=== PATIENT | female | born 1955 | race Caucasian/White ===

== ENCOUNTER 2018-05-22 13:43 | Outpatient (CLI) | payer MEDICAID, SELFPAY ==
--- NOTE | 2018-05-22 14:01 | DI.RAD_ITS ---
SYMPTOMS/DIAGNOSIS: RIGHT KNEE PAIN, M25.561 RIGHT KNEE: No bony or joint abnormality is seen.
== END 2018-05-22 14:03 ==
PROVIDERS: PCP Family Medicine; Visit Provider Family Medicine
DX: M25.561 Pain in right knee (principal)
CPT/HCPCS: 73564

== ENCOUNTER 2018-10-10 09:33 | Outpatient (CLI) | payer MEDICAID, SELFPAY ==
--- NOTE | 2018-10-10 10:02 | DI.RAD_ITS ---
SYMPTOM/DIAGNOSIS: CONTINUED SOB DESPITE ANTIBIOTICS, PNEUMONIA, J18.9 PA AND LATERAL CHEST: The heart is not enlarged. The lungs appear grossly clear with some changes of scarring. No pleural effusion is seen. CONCLUSION: No evidence of acute disease. No change from 01/02/16.
[2018-10-10 10:07] LABS: Abs Immature Grans 0.02 k/cumm (0.0-0.09); Absolute Eosinophil Count 0.13 k/cumm (0.0-0.7); Absolute Lymphocyte Count 2.53 k/cumm (1.2-3.4); Absolute Neutrophil Count 9.58 k/cumm (1.2-6.7); Basophils % 0.5; HCT 47.3 % (36.0-46.0); HGB 16.2 g/dL (12.0-15.5); Immature Grans % 0.2; Lymphocytes % 19.5; Mean Corp. HGB Concentration 34.2 g/dL (32.0-36.0); Mean Corpuscular Hemoglobin 31.3 pg (27.0-33.0); Mean Corpuscular Volume 91.3 fL (80-95); Mean Platelet Volume 9.9 fL (8.0-11.0); Monocytes % 4.9; Neutrophils % 73.9; Platelet Count 239 x1000/uL (130-400); RBC 5.18 m/cumm (4.00-5.20); RBC Distribution Width 13.9 % (11.7-14.6); White Blood Cell Count 12.96 k/cumm (4.4-10.8)
[2018-10-10 10:23] LABS: Absolute Basophil Count 0.06 k/cumm (0.0-0.2); Absolute Monocyte Count 0.64 k/cumm (0.11-0.7)
[2018-10-10 11:22] LABS: ALT 35 U/L (12-78); AST 14 U/L (15-37); Albumin 3.8 g/dL (3.4-5.0); Alkaline Phosphatase 66 U/L (46-116); Anion Gap 9.4 mmol/L (3-11); BUN 18 mg/dL (7-18); Bilirubin, Total 0.3 mg/dL (0.2-1.0); CO2 27.6 mmol/L (21.0-32.0); CREATININE 0.96 mg/dL (0.55-1.02); Calcium 9.5 mg/dL (8.5-10.1); Chloride 104 mmol/L (98-107); Glucose 92 mg/dL (70-100); Potassium 4.9 mmol/L (3.5-5.1); Sodium 141 mmol/L (136-145); Total Protein 7.3 g/dL (6.4-8.2)
== END 2018-10-10 09:53 ==
PROVIDERS: PCP Family Medicine; Visit Provider Nurse Practitioner Family
DX: R19.00 Intra-abdominal and pelvic swelling, mass and lump, unspecified site (principal); R06.02 Shortness of breath
CPT/HCPCS: 36415; 80053; 71046; 85025

== ENCOUNTER 2018-10-14 01:22 | Outpatient (CLI) | payer MEDICAID, SELFPAY ==
--- NOTE | 2018-10-14 11:56 | DI.CT_ITS ---
SYMPTOM/DIAGNOSIS: MASS TO RT FLANK WITH SMALLER NODULE RT BACK, R19.[address]: CT scan of the abdomen and pelvis was performed following the uneventful administration of intravenous and oral contrast material. Comparison examination is 01/02/16. There are infiltrates seen in the dependent portions of the lungs. This may represent atelectasis or pneumonia. The liver is normal in size. No suspicious hepatic mass is seen. The portal, superior mesenteric and splenic veins are patent. The patient is status post cholecystectomy. No significant biliary ductal dilatation is present. The pancreas, spleen and adrenal glands are unremarkable. The kidneys show normal and symmetric enhancement. No suspicious solid renal mass or obstructive uropathy is present. The urinary bladder is intact. The patient appears to be status post hysterectomy. The bowel shows no evidence of obstruction or inflammation. There is a normal appendix present. There is a small hiatal hernia present. There is atherosclerosis of the abdominal aorta but no aneurysmal dilatation. No significant abdominal or pelvic adenopathy, ascites or pneumoperitoneum is present. There does appear to be a small fat containing left inguinal hernia. A marker was placed along the right lateral abdominal wall. There is again seen a fat density mass measuring 6.4 cm. AP by 2.4 cm. transverse by 6.9 cm. craniocaudad. It is interposed between the right external oblique and right internal oblique muscles. This was present on the prior examination. It does appear to have shown some interval increase in size. There is a second fat density mass seen along the right abdominal wall interposed between the internal oblique and transverse abdominis muscles more inferiorly and measures 7.6 cm. AP by 3.9 cm. transverse by 7.7 cm. craniocaudad. These are most consistent with lipomas. Degenerative changes are seen in the spine. IMPRESSION: 1. Mass identified in the right lateral abdominal wall most consistent with a lipoma. This has shown slight interval increase in size compared to the examination from 01/02/16. 2. 7.7 cm. lipoma seen in the more inferior right abdominal wall. 3. No evidence of an acute abdomen. Incidental findings in the abdomen and pelvis as described above. 4. Dependent infiltrates in the lung bases. These may represent atelectasis or pneumonia.
[2018-10-14] MEDS: Omnipaque 350 MG/ML 100 ML BTL IJ (13:36)
[2018-10-14] MEDS: Omnipaque 350 MG/ML 50 ML BTL PO (13:37)
[2018-10-14] MEDS: Breeza Beverage 473 ML BTL PO ×2 (13:37→13:41)
== END 2018-10-14 01:42 ==
PROVIDERS: PCP Family Medicine; Visit Provider Nurse Practitioner Family
DX: R19.03 Right lower quadrant abdominal swelling, mass and lump (principal); R91.8 Other nonspecific abnormal finding of lung field; D17.1 Benign lipomatous neoplasm of skin and subcutaneous tissue of trunk; K44.9 Diaphragmatic hernia without obstruction or gangrene; K40.90 Unilateral inguinal hernia, without obstruction or gangrene, not specified as recurrent
CPT/HCPCS: 74177; J3490; Q9967

== ENCOUNTER 2018-11-07 10:44 | Emergency (ER) | payer MEDICAID, SELFPAY ==
--- NOTE | 2018-11-07 10:48 | NUR.NOTE ---
pt has has been sick for approximately 2 weeks and starting 3 days ago PT headache 7/10 pain constant stabing pain in the back right side of the head
[2018-11-07 10:50] VITALS: BP 150/88; PULSE 96; RESP 15; TEMP 36.7; O2SAT 96
--- NOTE | 2018-11-07 11:26 | W.ED.GENAD ---
Discharge Plan Disposition Patient Disposition: HOME Discharge Details Chief Complaint: Headache Clinical Impression: Muscle tension headache, COPD with exacerbation Primary Care Provider: Arnav Uriarte ED Provider: Clint Morales Home Meds and New Rx's Prescriptions: New prednisone 20 mg tablet 40 mg PO DAILY Qty: 8 RF: 0 diazepam 5 mg tablet 5 mg PO BID-TID PRN (Reason: muscle spasm) Qty: 3 RF: 0 Continued cyclobenzaprine 10 mg tablet 10 mg PO TID PRN (Reason: muscle spasm) Qty: 50 RF: 3 selenium sulfide 180 ML shampoo 1 liya Topical DIRECTED Qty: 3 RF: 4 albuterol sulfate 2.5 MG/3 ML solution for nebulization 2.5 mg Inhalation QID PRNQty: 3 RF: 5 triamcinolone acetonide 60 ML lotion Topical HS Qty: 60 RF: 3 Chantix Continuing Month Box 1 MG tablet 1 mg PO BID Qty: 60 RF: 2 Chantix Starting Month Box 1 EACH tablets,dose pack 1 ea PO As Directed Qty: 1 RF: 0 clotrimazole 45 GM cream Topical BID Qty: 45 RF: 4 omeprazole 40 MG capsule,delayed release(DR/EC) 40 mg PO DAILY Qty: 90 RF: 4 magnesium oxide 250 MG tablet 250 mg PO HS Qty: 30 RF: 11 [id number]-[id number]-VS 10 ML drops,suspension 4 drp Otic TID Qty: 10 RF: 0 citalopram 20 MG tablet 20 mg PO DAILY Qty: 90 RF: 4 Advair Diskus 1 EACH blister with device 1 puff Inhalation BID Qty: 1 RF: 11 losartan 50 mg tablet 50 mg PO DAILY Qty: 90 RF: 3 ProAir HFA 90 mcg/actuation HFA aerosol inhaler 2 puff Inhalation Q6H PRN Qty: 3 RF: 4 Atrovent HFA 17 mcg/actuation HFA aerosol inhaler 2 puff Inhalation QID Qty: 3 RF: 4 meloxicam 7.5 mg tablet See Rx Instructions PO DAILY Qty: 90 RF: 3 trazodone 50 mg tablet 50 mg PO HS PRN (Reason: insomnia) Qty: 90 RF: 3 Discontinued levofloxacin 750 mg tablet 750 mg PO DAILY Qty: 5 RF: 0 promethazine-codeine 6.25-10 mg/5 mL syrup 5 ml PO HS PRN (Reason: cough) Qty: 118 RF: 0 Discharge Instructions Instructions: Tension Headache (ED), COPD (Chronic Obstructive Pulmonary Disease) (ED) Additional Instructions: Please take medication as prescribed and follow-up with primary care provider next week for reassessment of your COPD and your headache. Feel free to return to the emergency department for any new or worsening symptoms, change in your symptoms, or further concerns she may have. You may continue to take your normal prescribed medication along with [id number] Excedrin Migraine headache medication. Referrals: Arnav Uriarte MD [Primary Care Provider] - (For reassessment next week) Discharge Data Discharge Date/Time-TO BE ENTERED AT DEPARTURE: 11/07/18 13:45 Medical Decision Making Patient presenting to the emergency department for chief complaint of headache. Patient states right-sided headache that started 3 days ago when returning from [place] on an airplane. She also does complain of some worsening shortness of breath that has been going on for a while . Patient does have history of COPD and has been on multiple antibiotics for potential pneumonia. Patient states that last round of antibiotics did seem to help her symptoms but now they are worse again. Review of previous records shows patient was also given steroid at that time so I am more suspicious of COPD exacerbation or worsening of her baseline COPD causing the shortness of breath. Start the headache goes patient has normal neurological exam with point tenderness to the right posterior soft tissue, muscles, and scalp. I feel the patient's headache is more tension migraine headache. Patient has no focal neurological findings to suggest otherwise at this time I do not feel that any imaging of the head is needed. Plan to perform labs, chest x-ray, and EKG for evaluation of patient shortness of breath and treat for migraine along with DuoNeb pending results. Also plan to check d-dimer given patient stating increased shortness of breath, is a smoker, over the age of 50, and recently long distance travel. Review of labs show no leukocytosis, otherwise nondiagnostic CMP with slight elevation of ALT and AST but nothing diagnostic, d-dimer 1400. Plan to do CT imaging of the chest. Patient reassessed and also continue to state discomfort within her right occipital, the pain was different than previous migraines, so plan to do CT imaging of the head. Review of CT imaging and speaking with the radiologist shows no PE, atelectasis without signs of pneumonia, and no acute findings on head CT. Patient reassessed and states some improvement of symptoms but only slight. Patient was offered a occipital nerve block given muscular point tenderness to the right occipit, as I feel that this would significantly benefit patient, but patient has phobia of needles so refused this treatment at this time. Given my concern of this being muscular tension type headache patient was given 3 tablets of diazepam to take at home to see if this helps reduce or minimize her symptoms. Patient was also encouraged to use Excedrin migraine headache medication, stay well-hydrated. Given patient's shortness of breath with no pneumonia findings, stable vital signs, and history of COPD I feel that she has some COPD exacerbation and would benefit from steroid burst. Patient given prednisone 4-day burst. Patient placed upon primary care follow-up list for reassessment next week. Thorough return precautions were discussed. After discussion of diagnosis and plan of care patient has no further needs, questions, or concerns and states clear understanding to return to the emergency department for any worsening symptoms. ECG Data Attestation: I personally reviewed and interpreted this ECG (s) as follows: Interpretation: EKG reviewed with Dr. Nava Desai and shows sinus rhythm with rate of 88, normal axis, normal QT, no acute STEMI HPI General Mode of arrival: ambulatory. Date/Time Provider Initiated Documentation: 11/07/18 10:52. Limitations to Documentation: no limitations. Information obtained by: patient and RN notes reviewed. History of Present Illness 63 year old F presents to the emergency department with the chief complaint of headache, described as severe, Quality is described as sharp, and is localized to the head and right. Patient started experiencing this day(s) (3) and it has been constant. No relieving factors improve symptom(s), No exacerbating factors reported . Patient did receive the following treatments prior to arrival, none Related Data Home Medications Medication Instructions Recorded Confirmed selenium sulfide 1 liya TOPICAL DIRECTED #3 script 03/06/13 10/10/18 albuterol sulfate 2.5 mg INHALATION QID PRN #3 box 03/19/14 10/10/18 triamcinolone acetonide 0 TOPICAL HS #60 ml 04/06/14 10/10/18 Chantix Continuing Month Box 1 mg PO BID #60 tab-cap 09/26/17 09/05/18 Chantix Starting Month Box 1 ea PO As Directed #1 pack 09/26/17 10/10/18 clotrimazole 0 TOPICAL BID #45 g 10/10/17 10/10/18 magnesium oxide 250 mg PO HS #30 tab 01/28/18 10/10/18 [id number]-yoxanztrh-LV 4 drp OTIC TID #10 ml 01/28/18 10/10/18 omeprazole 40 mg PO DAILY #90 tab-cap 01/28/18 10/10/18 citalopram 20 mg PO DAILY #90 tab-cap 03/04/18 10/10/18 Advair Diskus 1 puff INHALATION BID #1 disk 04/03/18 10/10/18 losartan 50 mg tablet 50 mg PO DAILY #90 tab-cap 06/11/18 10/10/18 cyclobenzaprine 10 mg tablet 10 mg PO TID PRN #50 tab-cap 09/05/18 10/10/18 albuterol sulfate HFA 90 2 puff INHALATION Q6H PRN #3 10/21/18 mcg/actuation aerosol inhaler inhaler ipratropium bromide 17 2 puff INHALATION QID #3 inhaler 10/21/18 mcg/actuation HFA aerosol inhaler meloxicam 7.5 mg tablet See Rx Instructions PO DAILY #90 10/21/18 tab-cap trazodone 50 mg tablet 50 mg PO HS PRN #90 tab-cap 10/21/18 diazepam 5 mg PO BID-TID PRN #3 tab 11/07/18 prednisone 40 mg PO DAILY #8 tab 11/07/18 Previous Rx's Medication Instructions Recorded Chantix Continuing Month Box 1 mg PO BID #60 tab-cap 09/26/17 Chantix Starting Month Box 1 ea PO As Directed #1 pack 09/26/17 magnesium oxide 250 mg PO HS #30 tab 01/28/18 [id number]-lksrmwokl-ML 4 drp OTIC TID #10 ml 01/28/18 omeprazole 40 mg PO DAILY #90 tab-cap 01/28/18 citalopram 20 mg PO DAILY #90 tab-cap 03/04/18 Advair Diskus 1 puff INHALATION BID #1 disk 04/03/18 losartan 50 mg tablet 50 mg PO DAILY #90 tab-cap 06/11/18 cyclobenzaprine 10 mg tablet 10 mg PO TID PRN #50 tab-cap 09/05/18 albuterol sulfate HFA 90 2 puff INHALATION Q6H PRN #3 10/21/18 mcg/actuation aerosol inhaler inhaler ipratropium bromide 17 2 puff INHALATION QID #3 inhaler 10/21/18 mcg/actuation HFA aerosol inhaler meloxicam 7.5 mg tablet See Rx Instructions PO DAILY #90 10/21/18 tab-cap trazodone 50 mg tablet 50 mg PO HS PRN #90 tab-cap 10/21/18 diazepam 5 mg PO BID-TID PRN #3 tab 11/07/18 prednisone 40 mg PO DAILY #8 tab 11/07/18 Allergies Allergy/AdvReac Type Severity Reaction Status Date / Time gabapentin Allergy Severe SKIN RASH Verified 11/07/18 12:27 mold Allergy Intermediate rash, sob Verified 11/07/18 12:27 General Stated Complaint: Headache BUTCH: 3 Review of Systems Constitutional Denies body ache(s), Denies chills, Denies fever(s) and Reports headache(s) Eyes Denies change in vision ENT Reports dizziness, Reports headache(s), Denies sinus pressure and Denies sore throat Cardiovascular Denies chest pain, Denies syncope and Reports dyspnea Respiratory Reports cough, Denies hemoptysis, Reports dyspnea and Reports wheezing Gastrointestinal Denies nausea and Denies vomiting Neurologic Reports as per HPI, Reports dizziness, Denies syncope, Reports headache(s) and Denies sensory deficit Allergic/Immunologic Reports wheezing PFSH Surgical History Abdominal hysterectomy (~2005) Bilateral salpingectomy with oophorectomy Cervical Procedure Cholecystectomy Social History Smoking/Tobacco Use Status: Current every day Drug use: Never Do you feel safe in your relationship?: Yes Exam Const General: cooperative, healthy appearing, no acute distress and well groomed Orientation: alert, awake and oriented x3 HENMT Head: normal to inspection Ears: hearing grossly normal bilaterally and TM's normal bilaterally Mouth: oral mucosae normal and moist mucous membranes Throat: posterior oropharynx normal Eyes Visual Glass: normal visual glass by confrontation Alignment and Position: alignment normal Periorbital: periorbital findings normal Eyelids: eyelids normal Sclera: sclerae normal Cornea: corneas normal Pupils: PERRL EOM: EOM intact bilaterally Neck Neck: normal visual inspection, full ROM, no lymphadenopathy and no meningeal signs Resp Effort & Inspection: normal respiratory effort and able to speak in complete sentences Auscultation: wheezes expiratory wheezes, inspiratory wheezes and scattered wheezes Cardio Rate: regular rate Rhythm: regular rhythm Heart Sounds: S1 normal and S2 normal Neuro General: alert, awake, oriented x3, gait normal, tone normal, moves all extremities, CN's II-XI intact bilaterally and not confused Cognition: normal cognition Speech: speech normal Motor: muscle tone normal throughout, strength 5/5 throughout, no pronator drift, no movement abnormalities noted and no fasciculations Sensory Exam: no sensory deficits noted Coordination: [id number]-[id number] test normal, Does not sway with eyes open, rapid alternating movement UE normal and rapid alternating movement LE normal Course Vital Signs Temperature 36.7 C 11/07/18 10:50 Pulse 96 H 11/07/18 10:50 Respiratory Rate 15 11/07/18 10:50 Blood Pressure 150/88 H 11/07/18 10:50 Pulse Oximetry 96 11/07/18 10:50 Temperature 36.7 C 11/07/18 10:50 Temperature Source Skin 11/07/18 10:50 Pulse 96 H 11/07/18 10:50 Respiratory Rate 15 11/07/18 10:50 Blood Pressure 150/88 H 11/07/18 10:50 Blood Pressure Position Sitting 11/07/18 10:50 Pulse Oximetry 96 11/07/18 10:50 Oxygen Delivery Method Room Air 11/07/18 10:50 Oxygen Flow Rate 0 11/07/18 10:50 Pain Level 7 11/07/18 10:50
--- NOTE | 2018-11-07 11:34 | ED.GENADUL_ITS ---
Discharge Plan Disposition Patient Disposition: HOME Discharge Details Chief Complaint: Headache Clinical Impression: Muscle tension headache, COPD with exacerbation Primary Care Provider: Arnav Uriarte ED Provider: Clint Morales Home Meds and New Rx's Prescriptions: New prednisone 20 mg tablet 40 mg PO DAILY Qty: 8 RF: 0 diazepam 5 mg tablet 5 mg PO BID-TID PRN (Reason: muscle spasm) Qty: 3 RF: 0 Continued cyclobenzaprine 10 mg tablet 10 mg PO TID PRN (Reason: muscle spasm) Qty: 50 RF: 3 selenium sulfide 180 ML shampoo 1 liya Topical DIRECTED Qty: 3 RF: 4 albuterol sulfate 2.5 MG/3 ML solution for nebulization 2.5 mg Inhalation QID PRNQty: 3 RF: 5 triamcinolone acetonide 60 ML lotion Topical HS Qty: 60 RF: 3 Chantix Continuing Month Box 1 MG tablet 1 mg PO BID Qty: 60 RF: 2 Chantix Starting Month Box 1 EACH tablets,dose pack 1 ea PO As Directed Qty: 1 RF: 0 clotrimazole 45 GM cream Topical BID Qty: 45 RF: 4 omeprazole 40 MG capsule,delayed release(DR/EC) 40 mg PO DAILY Qty: 90 RF: 4 magnesium oxide 250 MG tablet 250 mg PO HS Qty: 30 RF: 11 gibfrknf-yizuhcrsb-TG 10 ML drops,suspension 4 drp Otic TID Qty: 10 RF: 0 citalopram 20 MG tablet 20 mg PO DAILY Qty: 90 RF: 4 Advair Diskus 1 EACH blister with device 1 puff Inhalation BID Qty: 1 RF: 11 losartan 50 mg tablet 50 mg PO DAILY Qty: 90 RF: 3 ProAir HFA 90 mcg/actuation HFA aerosol inhaler 2 puff Inhalation Q6H PRN Qty: 3 RF: 4 Atrovent HFA 17 mcg/actuation HFA aerosol inhaler 2 puff Inhalation QID Qty: 3 RF: 4 meloxicam 7.5 mg tablet See Rx Instructions PO DAILY Qty: 90 RF: 3 trazodone 50 mg tablet 50 mg PO HS PRN (Reason: insomnia) Qty: 90 RF: 3 Discontinued levofloxacin 750 mg tablet 750 mg PO DAILY Qty: 5 RF: 0 promethazine-codeine 6.25-10 mg/5 mL syrup 5 ml PO HS PRN (Reason: cough) Qty: 118 RF: 0 Discharge Instructions Instructions: Tension Headache (ED), COPD (Chronic Obstructive Pulmonary Disease) (ED) Additional Instructions: Please take medication as prescribed and follow-up with primary care provider next week for reassessment of your COPD and your headache. Feel free to return to the emergency department for any new or worsening symptoms, change in your symptoms, or further concerns she may have. You may continue to take your normal prescribed medication along with [id number] Excedrin Migraine headache medication. Referrals: Arnav Uriarte MD [Primary Care Provider] - (For reassessment next week) Discharge Data Discharge Date/Time-TO BE ENTERED AT DEPARTURE: 11/07/18 13:45 Medical Decision Making Patient presenting to the emergency department for chief complaint of headache. Patient states right-sided headache that started 3 days ago when returning from [place] on an airplane. She also does complain of some worsening shortness of breath that has been going on for a while . Patient does have history of COPD and has been on multiple antibiotics for potential pneumonia. Patient states that last round of antibiotics did seem to help her symptoms but now they are worse again. Review of previous records shows patient was also given steroid at that time so I am more suspicious of COPD exacerbation or worsening of her baseline COPD causing the shortness of breath. Start the headache goes patient has normal neurological exam with point tenderness to the right posterior soft tissue, muscles, and scalp. I feel the patient's headache is more tension migraine headache. Patient has no focal neurological findings to suggest otherwise at this time I do not feel that any imaging of the head is needed. Plan to perform labs, chest x-ray, and EKG for evaluation of patient shortness of breath and treat for migraine along with DuoNeb pending results. Also plan to check d-dimer given patient stating increased shortness of breath, is a smoker, over the age of 50, and recently long distance travel. Review of labs show no leukocytosis, otherwise nondiagnostic CMP with slight elevation of ALT and AST but nothing diagnostic, d-dimer 1400. Plan to do CT imaging of the chest. Patient reassessed and also continue to state discomfort within her right occipital, the pain was different than previous migraines, so plan to do CT imaging of the head. Review of CT imaging and speaking with the radiologist shows no PE, atelectasis without signs of pneumonia, and no acute findings on head CT. Patient reassessed and states some improvement of symptoms but only slight. Patient was offered a occipital nerve block given muscular point tenderness to the right occipit, as I feel that this would significantly benefit patient, but patient has phobia of needles so refused this treatment at this time. Given my concern of this being muscular tension type headache patient was given 3 tablets of diazepam to take at home to see if this helps reduce or minimize her symptoms. Patient was also encouraged to use Excedrin migraine headache medication, stay well-hydrated. Given patient's shortness of breath with no pneumonia findings, stable vital signs, and history of COPD I feel that she has some COPD exacerbation and would benefit from steroid burst. Patient given prednisone 4- day burst. Patient placed upon primary care follow-up list for reassessment next week. Thorough return precautions were discussed. After discussion of diagnosis and plan of care patient has no further needs, questions, or concerns and states clear understanding to return to the emergency department for any worsening symptoms. ECG Data Attestation: I personally reviewed and interpreted this ECG (s) as follows: Interpretation: EKG reviewed with Dr. Nava Desai and shows sinus rhythm with rate of 88, normal axis, normal QT, no acute STEMI HPI General Mode of arrival: ambulatory . Date/Time Provider Initiated Documentation: 11/07/18 10:52 . Limitations to Documentation: no limitations . Information obtained by: patient and RN notes reviewed . History of Present Illness 63 year old F presents to the emergency department with the chief complaint of headache, described as severe, Quality is described as sharp, and is localized to the head and right. Patient started experiencing this day(s) (3) and it has been constant. No relieving factors improve symptom(s), No exacerbating factors reported . Patient did receive the following treatments prior to arrival, none Related Data Home Medications Medication Instructions Recorded Confirmed selenium sulfide 1 liya TOPICAL DIRECTED #3 script 03/06/13 10/10/18 albuterol sulfate 2.5 mg INHALATION QID PRN #3 box 03/19/14 10/10/18 triamcinolone acetonide 0 TOPICAL HS #60 ml 04/06/14 10/10/18 Chantix Continuing Month Box 1 mg PO BID #60 tab-cap 09/26/17 09/05/18 Chantix Starting Month Box 1 ea PO As Directed #1 pack 09/26/17 10/10/18 clotrimazole 0 TOPICAL BID #45 g 10/10/17 10/10/18 magnesium oxide 250 mg PO HS #30 tab 01/28/18 10/10/18 ufzcxcvz-yjyphdsik-AL 4 drp OTIC TID #10 ml 01/28/18 10/10/18 omeprazole 40 mg PO DAILY #90 tab-cap 01/28/18 10/10/18 citalopram 20 mg PO DAILY #90 tab-cap 03/04/18 10/10/18 Advair Diskus 1 puff INHALATION BID #1 disk 04/03/18 10/10/18 losartan 50 mg tablet 50 mg PO DAILY #90 tab-cap 06/11/18 10/10/18 cyclobenzaprine 10 mg tablet 10 mg PO TID PRN #50 tab-cap 09/05/18 10/10/18 albuterol sulfate HFA 90 2 puff INHALATION Q6H PRN #3 10/21/18 mcg/actuation aerosol inhaler inhaler ipratropium bromide 17 2 puff INHALATION QID #3 inhaler 10/21/18 mcg/actuation HFA aerosol inhaler meloxicam 7.5 mg tablet See Rx Instructions PO DAILY #90 10/21/18 tab-cap trazodone 50 mg tablet 50 mg PO HS PRN #90 tab-cap 10/21/18 diazepam 5 mg PO BID-TID PRN #3 tab 11/07/18 prednisone 40 mg PO DAILY #8 tab 11/07/18 Previous Rx's Medication Instructions Recorded Chantix Continuing Month Box 1 mg PO BID #60 tab-cap 09/26/17 Chantix Starting Month Box 1 ea PO As Directed #1 pack 09/26/17 magnesium oxide 250 mg PO HS #30 tab 01/28/18 rdhbqnvt-nlrychnqu-BG 4 drp OTIC TID #10 ml 01/28/18 omeprazole 40 mg PO DAILY #90 tab-cap 01/28/18 citalopram 20 mg PO DAILY #90 tab-cap 03/04/18 Advair Diskus 1 puff INHALATION BID #1 disk 04/03/18 losartan 50 mg tablet 50 mg PO DAILY #90 tab-cap 06/11/18 cyclobenzaprine 10 mg tablet 10 mg PO TID PRN #50 tab-cap 09/05/18 albuterol sulfate HFA 90 2 puff INHALATION Q6H PRN #3 10/21/18 mcg/actuation aerosol inhaler inhaler ipratropium bromide 17 2 puff INHALATION QID #3 inhaler 10/21/18 mcg/actuation HFA aerosol inhaler meloxicam 7.5 mg tablet See Rx Instructions PO DAILY #90 10/21/18 tab-cap trazodone 50 mg tablet 50 mg PO HS PRN #90 tab-cap 10/21/18 diazepam 5 mg PO BID-TID PRN #3 tab 11/07/18 prednisone 40 mg PO DAILY #8 tab 11/07/18 Allergies Allergy/AdvReac Type Severity Reaction Status Date / Time gabapentin Allergy Severe SKIN RASH Verified 11/07/18 12:27 mold Allergy Intermediate rash, sob Verified 11/07/18 12:27 General Stated Complaint: Headache BUTCH: 3 Review of Systems Constitutional Denies body ache(s), Denies chills, Denies fever(s) and Reports headache(s) Eyes Denies change in vision ENT Reports dizziness, Reports headache(s), Denies sinus pressure and Denies sore throat Cardiovascular Denies chest pain, Denies syncope and Reports dyspnea Respiratory Reports cough, Denies hemoptysis, Reports dyspnea and Reports wheezing Gastrointestinal Denies nausea and Denies vomiting Neurologic Reports as per HPI, Reports dizziness, Denies syncope, Reports headache(s) and Denies sensory deficit Allergic/Immunologic Reports wheezing PFSH Surgical History Abdominal hysterectomy (~2005) Bilateral salpingectomy with oophorectomy Cervical Procedure Cholecystectomy Social History Smoking/Tobacco Use Status: Current every day Drug use: Never Do you feel safe in your relationship?: Yes Exam Const General: cooperative, healthy appearing, no acute distress and well groomed Orientation: alert, awake and oriented x3 HENMT Head: normal to inspection Ears: hearing grossly normal bilaterally and TM's normal bilaterally Mouth: oral mucosae normal and moist mucous membranes Throat: posterior oropharynx normal Eyes Visual Glass: normal visual glass by confrontation Alignment and Position: alignment normal Periorbital: periorbital findings normal Eyelids: eyelids normal Sclera: sclerae normal Cornea: corneas normal Pupils: PERRL EOM: EOM intact bilaterally Neck Neck: normal visual inspection, full ROM, no lymphadenopathy and no meningeal signs Resp Effort & Inspection: normal respiratory effort and able to speak in complete sentences Auscultation: wheezes expiratory wheezes, inspiratory wheezes and scattered wheezes Cardio Rate: regular rate Rhythm: regular rhythm Heart Sounds: S1 normal and S2 normal Neuro General: alert, awake, oriented x3, gait normal, tone normal, moves all extremities, CN's II-XI intact bilaterally and not confused Cognition: normal cognition Speech: speech normal Motor: muscle tone normal throughout, strength 5/5 throughout, no pronator drift, no movement abnormalities noted and no fasciculations Sensory Exam: no sensory deficits noted Coordination: ibgtij-lq-olln test normal, Does not sway with eyes open, rapid alternating movement UE normal and rapid alternating movement LE normal Course Vital Signs Temperature 36.7 C 11/07/18 10:50 Pulse 96 H 11/07/18 10:50 Respiratory Rate 15 11/07/18 10:50 Blood Pressure 150/88 H 11/07/18 10:50 Pulse Oximetry 96 11/07/18 10:50 Temperature 36.7 C 11/07/18 10:50 Temperature Source Skin 11/07/18 10:50 Pulse 96 H 11/07/18 10:50 Respiratory Rate 15 11/07/18 10:50 Blood Pressure 150/88 H 11/07/18 10:50 Blood Pressure Position Sitting 11/07/18 10:50 Pulse Oximetry 96 11/07/18 10:50 Oxygen Delivery Method Room Air 11/07/18 10:50 Oxygen Flow Rate 0 11/07/18 10:50 Pain Level 7 11/07/18 10:50
[2018-11-07 11:41] LABS: Abs Immature Grans 0.01 k/cumm (0.0-0.09); Absolute Basophil Count 0.07 k/cumm (0.0-0.2); Absolute Eosinophil Count 0.11 k/cumm (0.0-0.7); Absolute Lymphocyte Count 1.49 k/cumm (1.2-3.4); Absolute Monocyte Count 0.73 k/cumm (0.11-0.7); Absolute Neutrophil Count 3.23 k/cumm (1.2-6.7); Basophils % 1.2; HCT 47.3 % (36.0-46.0); HGB 16.4 g/dL (12.0-15.5); Immature Grans % 0.2; Lymphocytes % 26.4; Mean Corp. HGB Concentration 34.7 g/dL (32.0-36.0); Mean Corpuscular Hemoglobin 30.8 pg (27.0-33.0); Mean Corpuscular Volume 88.9 fL (80-95); Monocytes % 12.9; Neutrophils % 57.3; Platelet Count 188 x1000/uL (130-400); RBC 5.32 m/cumm (4.00-5.20); RBC Distribution Width 14.5 % (11.7-14.6); White Blood Cell Count 5.64 k/cumm (4.4-10.8)
--- NOTE | 2018-11-07 11:48 | DI.RAD_ITS ---
SYMPTOMS/DIAGNOSIS: SHORTNESS OF BREATH PA AND LATERAL CHEST: Comparison 10/10/18. The heart size and pulmonary vasculature are within normal limits. No focal consolidating infiltrates, effusions or pneumothoraces are identified. There are degenerative changes seen in the spine. IMPRESSION: No acute pulmonary process.
[2018-11-07 11:58] LABS: ALT 80 U/L (12-78); AST 44 U/L (15-37); Albumin 3.6 g/dL (3.4-5.0); Alkaline Phosphatase 69 U/L (46-116); Anion Gap 9.9 mmol/L (3-11); BUN 10 mg/dL (7-18); Bilirubin, Total 0.4 mg/dL (0.2-1.0); CO2 28.1 mmol/L (21.0-32.0); CREATININE 0.82 mg/dL (0.55-1.02); Chloride 99 mmol/L (98-107); Glucose 104 mg/dL (70-100); Potassium 3.6 mmol/L (3.5-5.1); Sodium 137 mmol/L (136-145); Total Protein 7.7 g/dL (6.4-8.2)
[2018-11-07 12:02] LABS: Calcium 8.9 mg/dL (8.5-10.1)
[2018-11-07 12:14] LABS: D-Dimer 1401 ng/mlFEU (<500)
--- NOTE | 2018-11-07 12:18 | DI.CT_ITS ---
SYMPTOMS/DIAGNOSIS: SHORTNESS OF BREATH, ELEVATED D DIMER, HEADACHE CT SCAN OF THE CHEST FOR PULMONARY EMBOLISM: CT angiography was performed with multi slice acquisition and multi planar and 3D reconstruction. CT scan of the chest was performed according to the pulmonary embolus protocol. There is patient motion artifact. There is no evidence of a pulmonary embolus embolus. The thoracic aorta is of normal caliber. No evidence of aneurysm or dissection. The heart size is within normal limits. No significant pericardial effusion is seen. No significant thoracic adenopathy, pleural effusion or pneumothorax is identified. Atelectatic changes are seen in the lungs. No focal consolidating infiltrates are present. The tracheobronchial tree is unremarkable. The upper abdominal images show the patient is status post cholecystectomy. Degenerative changes are seen in the spine. IMPRESSION: 1. No acute abnormality. 2. No evidence of a pulmonary embolus, thoracic aortic dissection or aneurysm. The findings were discussed with the emergency department on the date of the examination. CT BRAIN: There is contrast in the vascular system due to the patient's CT scan of the chest performed the same day. There is normal felder/white matter differentiation. The ventricles are intact. The basilar cisterns are patent. No acute infarct is seen. No midline shift. The visualized paranasal sinuses are clear. The mastoid air cells are well pneumatized. The calvarium is intact. IMPRESSION: No acute intracranial process. The findings were discussed with the emergency department on the date of the examination.
[2018-11-07] MEDS: Albuterol/Ipratropium 3 ML UPD VIAL UPD (12:21)
[2018-11-07] MEDS: diphenhydrAMINE 50 MG/ML VIAL IVP (12:22)
[2018-11-07] MEDS: Prochlorperazine 10 MG/2 ML VIAL IVP (12:23)
[2018-11-07] MEDS: Normal Saline 1,000 ML 1000 ML IV (12:23)
[2018-11-07] MEDS: Ketorolac 30 MG/ML VIAL IVP (12:23)
[2018-11-07] MEDS: Omnipaque 350 MG/ML 100 ML BTL IJ (12:43)
[2018-11-07 13:44] VITALS: BP 152/74; PULSE 85; RESP 15; TEMP 36.7; O2SAT 97
--- NOTE | 2018-11-10 09:11 | PDOC.ERCMPRO ---
Care Management Progress Note 11/10-Alfredo MARTÍNEZ requested assistance with a PCP (Chapito) f/u in one week for headache, COPD. Referral faxed to [facility] this am.
== END 2018-11-07 13:45 | disposition home or self-care (01) ==
PROVIDERS: Emergency Provider Nurse Practitioner Family; PCP Family Medicine
DX: R51 Headache (principal); J44.1 Chronic obstructive pulmonary disease with (acute) exacerbation; F17.210 Nicotine dependence, cigarettes, uncomplicated
CPT/HCPCS: 36415; 71275; 80053; 93005; 94640; 96361; 96372; 96374; 96375; 99285; 70450; 71046; 85025; 85379; 93010; J0780; J1200; J1885; J3490; J7620

== ENCOUNTER 2020-04-12 07:51 | Day surgery (SDC) | payer MEDICAID, SELFPAY ==
[2020-04-12 08:25] VITALS: BP 167/91; PULSE 82; RESP 18; TEMP 36.2; O2SAT 96
[2020-04-12] MEDS: Lactated Ringers 1,000 ML 80 ML IV (08:45)
--- NOTE | 2020-04-12 08:52 | W.PM.DSUDISC ---
Discharge Plan Disposition Patient Disposition: HOME Condition: Good Discharge Details Reason For Visit: Excision right flank and left chest lipomas Attending Provider: Kandis Arenas Primary Care Provider: Wily Anders Home Meds and New Rx's Prescriptions: Continued citalopram 20 mg tablet 20 mg PO DAILY Qty: 90 RF: 4 magnesium oxide 250 mg magnesium tablet 250 mg PO HS Qty: 30 RF: 11 albuterol sulfate [ProAir HFA] 90 mcg/actuation HFA aerosol inhaler 2 puff Inhalation Q6H PRN Qty: 3 RF: 4 fluticasone propion-salmeterol [Advair Diskus] 250-50 mcg/dose blister with device 1 ea Inhalation BID Qty: 1 RF: 11 Atrovent HFA 17 mcg/actuation HFA aerosol inhaler 2 puff Inhalation QID Qty: 3 RF: 4 meloxicam 7.5 mg tablet See Rx Instructions PO DAILY Qty: 90 RF: 3 trazodone 50 mg tablet 50 mg PO HS PRN (Reason: insomnia) Qty: 90 RF: 3 omeprazole 40 mg capsule,delayed release(DR/EC) 40 mg PO DAILY Qty: 90 RF: 4 nystatin 100,000 unit/gram powder 1 applic TP BID PRN (Reason: Intertrigo) RF: 0 losartan 100 mg tablet 100 mg PO DAILY Qty: 90 RF: 3 promethazine-codeine 6.25-10 mg/5 mL syrup 5 ml PO Q4H PRN (Reason: cough) Qty: 180 RF: 0 albuterol sulfate 2.5 MG/3 ML solution for nebulization 2.5 mg Inhalation QID PRNQty: 3 RF: 5 triamcinolone acetonide 60 ML lotion 1 applic Topical HS Qty: 60 RF: 3 utlotvxf-rveqxkzcv-VW 3.5-10,000-1 mg/mL-unit/mL-% solution 4 drp OT TID Qty: 10 RF: 0 selenium sulfide 2.5 % lotion See Rx Instructions TP .COMPLEX Qty: 120 RF: 3 cyclobenzaprine 10 mg tablet 10 mg PO TID PRN (Reason: muscle spasm) Qty: 50 RF: 3 ibuprofen 400 mg Tablet 400 mg PO Q6H RF: 0 Discharge Instructions Additional Instructions: The top bandage can be removed tomorrow. The steri strips will usually stick for about a week. When the edges start to curl up, they can be removed. It is okay to shower tomorrow, the water can run over the steri strips Do not swim or soak in a tub for two weeks Call for any concerns including fever, increased pain, incision redness or drainage. Keep lifting light for two weeks. Walking and stairs are fine. Do not drive if on narcotic pain meds or if limited by pain. May use Tylenol alternating with ibuprofen for pain control. Ice is also an option. The maximum dose for Tylenol is 4000 mg/day. May use ibuprofen 800 mg every 8 hours as needed. If concerned about constipation, you may use a stool softener or milk of magnesia. Referrals: Kandis Arenas MD [ [facility] STAFF PHYSICIAN] - (Return as needed) Activity:: Keep lifting light for two weeks Remove Dressings/Wound Care:: 24 hours Shower/Bathe:: 24 hours Diet:: As Tolerated Discharge Orders Discharge Orders: Discharge Order (Routine); Ordered 04/12/20 Ordered By: Kandis Arenas DS: Diagnosis Discharge Diagnosis (1) Subcutaneous mass: Status: Acute
--- NOTE | 2020-04-12 09:01 | W.PM.OP ---
Date of service: 04/12/20 Time of Service: 10:26 Operative Note Operative Note DATE OF PROCEDURE: 04/12/20 PRE-OP DIAGNOSIS: Right flank and left chest lipomas POST-OP DIAGNOSIS: same PROCEDURE: Excision left chest deep subcutaneous mass Excision right flank intramuscular lipoma SURGEON: Kandis Arenas PIE FILLING MIXER: Patricia Aguilar ANESTHESIA: MAC and local Patient was transported to: same day Indications: This 64 year old woman presents with a large right flank SQ mass increasing in size. She also has a tender left upper chest wall SQ mass. Procedure Description: The patient was place supine on the operating table. The right flank and left upper chest regions were prepped and draped sterilely. Local anesthetic was infiltrated over each mass and a transverse incision made. On the left chest, subcutaneous tissue was divided with cautery down the deep subcutaneous mass. This was dissected free with blunt and sharp dissection. It was overlying the intercostal muscles. This measured just over 5cm in size. The right flank lipoma was deep and required separation of the external and internal oblique muscles. It was dissected free intact with mostly blunt and careful cautery dissection. This measure about 9cm. The patient had a prior open cholecystectomy incision but no incisional fascial defect was noted. The internal and external oblique layers were closed with a running 0 Vicryl. The skin closed with a 3-0 vicryl at both incisions and dressed with steri strips and a 4x4/Tegaderm. She tolerated the procedure well.
[2020-04-12] MEDS: Lidocaine 1% Multi-Dose 50 ML VIAL (09:46)
--- NOTE | 2020-04-12 10:08 | SOFT_PTH ---
PATIENT: Malika Marley LOC: [facility] U#:[id number] AGE/SX: 64/F ROOM: RE04/12/[address]: Kandis Arenas MD : 1955 BED: DIS: 04/12/2020 SPEC #: [id number] RECD: 04/12/20 12:55 STATUS: CONNOR REQ #: [id number] SUKH: 04/12/20 10:[address]: Kandis Arenas DEPT: Surgical Specimen RECD BY: Farida Teixeira ENTERED: 04/12/20 12:56 SP TYPE: SOFT OTHR DR: Wily Anders MD Tissues: 1 - SOFT TISSUE MISC (INC. LIPOMA) 2 - SOFT TISSUE MISC (INC. LIPOMA) Procedures: GROSS AND MICRO LEVEL 3 Comments: [id number]
[2020-04-12] MEDS: Ketorolac 15 MG/ML VIAL IVP (11:03)
[2020-04-12 11:15] VITALS: BP 132/65; PULSE 69; RESP 18; TEMP 36.2; O2SAT 95
== END 2020-04-12 12:11 | disposition home or self-care (01) ==
PROVIDERS: PCP Family Medicine; Visit Provider Surgery
PROC: (CPT 21933; principal; 2020-04-12 09:15)
DX: D17.1 Benign lipomatous neoplasm of skin and subcutaneous tissue of trunk (principal)
CPT/HCPCS: 21933; 21552; 88304; J1885; J2704

== ENCOUNTER 2020-07-20 02:08 | Outpatient (CLI) | payer MEDICARE, MEDICAID, SELFPAY ==
[2020-07-20 09:56] LABS: HCT 48.6 % (36.0-46.0); HGB 16.5 g/dL (11.2-15.7); MCH 31.7 pg (27.0-33.0); MCV 93.5 fL (80-95); MPV 9.6 fL (8.0-11.0); Platelet Count 274 10^3/uL (130-400); RDW 13.7 % (11.7-14.6); WBC 9.52 10^3/uL (4.4-10.8)
[2020-07-20 11:14] LABS: ALT 34 U/L (14-59); AST 15 U/L (15-37); Albumin 3.9 g/dL (3.4-5.0); Alkaline Phosphatase 65 U/L (46-116); Anion Gap 9.9 mmol/L (3-11); BUN 21 mg/dL (7-18); Bilirubin, Total 0.4 mg/dL (0.2-1.0); CO2 28.1 mmol/L (21.0-32.0); CREATININE 0.96 mg/dL (0.55-1.02); Calcium 9.1 mg/dL (8.5-10.1); Calculated LDL 167 mg/dL (<100); Chloride 104 mmol/L (98-107); Cholesterol 280 mg/dL (<200); Estimated GFR 58.33 (mL/min/1.73m2); Glucose 89 mg/dL (74-106); HDL Cholesterol 63 mg/dL (40-60); Potassium 4.2 mmol/L (3.5-5.1); Sodium 142 mmol/L (136-145); TSH 2.83 uIU/mL (0.36-3.74); Total Protein 7.2 g/dL (6.4-8.2); Triglyceride 251 mg/dL (<150)
== END 2020-07-20 02:28 ==
PROVIDERS: PCP Family Medicine; Visit Provider Family Medicine
DX: I10 Essential (primary) hypertension (principal)
CPT/HCPCS: 36415; 80053; 80061; 85027; 84443

== ENCOUNTER 2020-10-26 01:27 | Outpatient (CLI) | payer MEDICARE, MEDICAID, SELFPAY ==
--- NOTE | 2020-10-26 09:26 | DI.RAD_ITS ---
EXAM: XR SHOULDER RT COMPLETE 2+V CLINICAL HISTORY: right shoulder pain,M25.511. TECHNIQUE: 2D digital imaging was performed. COMPARISON: No exams were available for comparison FINDINGS: There is no evidence of fracture nor dislocation. No soft tissue calcifications. Minimal degenerati ve changes. No osteophytes. Subacromial space is not diminished. No osseous lesions. Bone density normal. IMPRESSION: DATA REPOSITORY: RADIATION DOSE DELIVERED:
== END 2020-10-26 01:28 ==
LOC: DI 01:27
PROVIDERS: PCP Family Medicine; Visit Provider Emergency Medicine
DX: M25.511 Pain in right shoulder (principal)
CPT/HCPCS: 73030

== ENCOUNTER → 2020-11-22 10:29 | Outpatient (BNVA) | payer MEDICARE, MEDICAID, SELFPAY | PROVIDERS: PCP Family Medicine; Referring Provider Family Medicine; Visit Provider Student in an Organized Health Care Education/Training Program | DX: M75.21 Bicipital tendinitis, right shoulder (principal); M75.51 Bursitis of right shoulder; M79.18 Myalgia, other site; G89.29 Other chronic pain; J44.9 Chronic obstructive pulmonary disease, unspecified; F17.210 Nicotine dependence, cigarettes, uncomplicated; I10 Essential (primary) hypertension | CPT/HCPCS: 20610; 99204; 99214; J1030 ==

== ENCOUNTER 2021-01-02 02:44 | Outpatient (CLI) | payer MEDICARE, MEDICAID, SELFPAY ==
[2021-01-02] MEDS: Albuterol HFA 18 GM 200 PUFF INH IH (09:15)
[2021-01-02] MEDS: Inhaler, Assist Device 1 EACH MC (09:15)
--- NOTE | 2021-01-04 13:42 | PFT_ITS ---
Date of service: 01/02/21 Time of Service: 08:14 Pulmonary Function Test Result Interpretation Spirometry: Moderately severe obstructive airways disease with significant bronchodilator response, this represents a very poor patient effort Lung Volumes: No evidence of restriction Diffusion Capacity: Extremely poor patient effort for diffusion capacity, did not meet ATS criteria for acceptability. Therefore results should not be used in any clinical context Or decision making. Airway Pressure: Elevated Impression Moderately severe obstructive airways disease with significant bronchodilator response, however this test represents an extremely poor patient effort. T herefore these results may not accurately reflect the amount of obstruction. The diffusion capacity maneuver did not meet acceptability criteria by ATS therefore should not be used in any clinical context or decision making Clinical Correlation therefore is recommended.
== END 2021-01-02 02:45 | disposition home or self-care (01) ==
LOC: RT 02:44
PROVIDERS: PCP Family Medicine; Visit Provider Family Medicine
DX: J44.9 Chronic obstructive pulmonary disease, unspecified (principal); R06.09 Other forms of dyspnea; R05 Cough; F17.210 Nicotine dependence, cigarettes, uncomplicated
CPT/HCPCS: 94060; 94726; 94729

== ENCOUNTER 2021-01-06 04:18 | Outpatient (CLI) | payer MEDICARE, MEDICAID, SELFPAY ==
--- NOTE | 2021-01-06 | DI.CTLCSR_ITS ---
Exam(s) CT CHEST LUNG CANCER SCREEN EXAM: CT CHEST LUNG CANCER SCREEN CLINICAL HISTORY: SMOKER, F17.210, SCREENING FOR LUNG CA,[facility],Z00.00 TECHNIQUE: Imaging Protocol: Axial computed tomography images with coronal and sagittal reformatted images were created and reviewed COMPARISON: CT CT chest PE CTA from 11/07/2018 FINDINGS: Tracheobronchial tree: Patent where visualized. Pulmonary parenchyma: There is an infiltrate in the medial aspect of the right middle lobe. Mild dong trilobular emphysema. Lung Nodules: None. Mediastinum and Diamante: No dominant adenopathy or fluid collection. Pleura: No effusion or pneumothorax. Heart: The heart is not dilated. Mild coronary artery calcification. No pericardial effusion. Aorta: Thoracic aorta non-dilated.Moderate atherosclerosis. Upper abdomen: Status post cholecystectomy. Soft Tissues: Unremarkable. Bones: Within normal limits. IMPRESSION: 1. No pulmonary nodules. 2. Small infiltrate in the medial aspect of the right middle lobe. This may represent atelectasis, s carring or pneumonia. Please correlate clinically. 3. Mild centrilobular emphysema. Lung RADS Cat 1 - Negative: No nodules and definitely benign nodules Lung-RADS 1.0 CATEGORIES: Category 0 - Prior chest CT exam(s) being located for comparison. Category 1 - Annual screening in 12 months. No nodules or definitely benign nodules. Category 2 - Annual screening in 12 months. Benign appearance. Nodules with low likelihood of becomin g active cancer. Category 3 - 6-month follow-up. Probably benign. Short-term follow-up suggested. Nodules with low lik elihood of becoming active cancer. Category 4A - 3-month follow-up and CT/PET if >8 mm in size. Suspicious finding. Findings which requi re additional testing. Category 4B - Findings which require additional testing and tissue sampling. Suspicious finding. Modifier S- Potentially clinically significant finding. (Non lung cancer) Incidental Findings RADIATION DOSE DELIVERED: 71.21mGy.cm Total DLP 71.21mGy.cm Total DLP 1.84mGy CTDIvol DATA REPOSITORY: All CT scans at this facility are submitted to the National Radiology Data Registry (NRDR) Dose Index Registry (DIR) with the [employer] (A[employer]). RADIATION OPTIMIZATION: All CT scans at this facility use at least one of these dose optimization te chniques: automated exposure control; mA and/or kV adjustment per patient size (includes targeted exa ms where dose is matched to clinical indication); or iterative reconstruction.
== END 2021-01-06 04:38 ==
PROVIDERS: PCP Family Medicine; Visit Provider Family Medicine
DX: Z12.2 Encounter for screening for malignant neoplasm of respiratory organs (principal); F17.210 Nicotine dependence, cigarettes, uncomplicated; R91.8 Other nonspecific abnormal finding of lung field; J43.2 Centrilobular emphysema
CPT/HCPCS: 71271

== ENCOUNTER 2021-07-24 18:09 | Outpatient (REF) | payer MEDICARE, MEDICAID, SELFPAY ==
[2021-07-24 16:44] LABS: ALT 33 U/L (14-59); AST 14 U/L (15-37); Albumin 3.9 g/dL (3.4-5.0); Alkaline Phosphatase 81 U/L (46-116); Anion Gap 10.3 mmol/L (3-11); BUN 14 mg/dL (7-18); Bilirubin, Total 0.3 mg/dL (0.2-1.0); CO2 26.7 mmol/L (21.0-32.0); CREATININE 0.9 mg/dL (0.55-1.02); Calcium 8.7 mg/dL (8.5-10.1); Calculated LDL 101 mg/dL (<100); Chloride 104 mmol/L (98-107); Cholesterol 206 mg/dL (<200); Glucose 112 mg/dL (74-106); HDL Cholesterol 57 mg/dL (40-60); Magnesium 2.2 mg/dL (1.8-2.4); Potassium 4.2 mmol/L (3.5-5.1); Sodium 141 mmol/L (136-145); Total Protein 7.2 g/dL (6.4-8.2); Triglyceride 240 mg/dL (<150)
== END 2021-07-24 18:10 | disposition home or self-care (01) ==
LOC: NCHCN 18:09
PROVIDERS: PCP Family Medicine; Visit Provider Family Medicine
DX: E78.70 Disorder of bile acid and cholesterol metabolism, unspecified (principal); Z00.00 Encounter for general adult medical examination without abnormal findings; E83.42 Hypomagnesemia; I10 Essential (primary) hypertension
CPT/HCPCS: 80053; 80061; 83735

== ENCOUNTER → 2022-03-19 00:17 | Outpatient (CLI) | payer OTHER, MEDICAID, SELFPAY ==
--- NOTE | 2022-03-19 09:18 | DI.CTLCSR_ITS ---
Exam(s) CT CHEST LUNG CANCER SCREEN EXAM: CT CHEST LUNG CANCER SCREEN CLINICAL HISTORY: CIGARETTE SMOKER, F17.210, [id number] HISTORY, SCREENING, F/U 01/06/21 CT TECHNIQUE: Imaging Protocol: Axial computed tomography images with coronal and sagittal reformatted images were created and reviewed. Low dose screening protocol. COMPARISON: CT CT CHEST LUNG CANCER SCREEN from 01/06/2021 FINDINGS: Tracheobronchial tree: No bronchiectasis or mucus plugging.. Mediastinum and Diamante: No dominant adenopathy or fluid collection. Pulmonary parenchyma: Mild emphysematous changes. Mild basilar are atelectasis. Previously mentione d right middle lobe infiltrate no longer seen. No consolidation or dominant measurable mass. No visi ble emphysematous changes. Lung Nodules: None. Pleura: No effusion. No pneumothorax. Heart: The heart is not dilated. coronary artery calcifications are seen. Aorta: Thoracic aorta non-dilated.Calcification at the arch. Upper abdomen: Status post cholecystectomy. Bones: Unremarkable for age. Soft Tissues: Unremarkable. IMPRESSION: No suspicious pulmonary nodules. Lung RADS Cat 1 - Negative: No nodules and definitely benign nodules Lung-RADS 1.0 CATEGORIES: Category 0 - Prior chest CT exam(s) being located for comparison. Category 1 - Annual screening in 12 months. No nodules or definitely benign nodules. Category 2 - Annual screening in 12 months. Benign appearance. Nodules with low likelihood of becomin g active cancer. Category 3 - 6-month follow-up. Probably benign. Short-term follow-up suggested. Nodules with low lik elihood of becoming active cancer. Category 4A - 3-month follow-up and CT/PET if >8 mm in size. Suspicious finding. Findings which requi re additional testing. Category 4B - Findings which require additional testing and tissue sampling. Category 4X - Category 3 or 4 nodules with additional features or imaging findings that increases the suspicion of malignancy. Modifier S- Potentially clinically significant findings (non lung cancer) RADIATION DOSE DELIVERED: 73.29mGy.cm Total DLP 1.84mGy CTDIvol DATA REPOSITORY: All CT scans at this facility are submitted to the National Radiology Data Registry (NRDR) Dose Index Registry (DIR) with the [employer] (ACR). RADIATION OPTIMIZATION: All CT scans at this facility use at least one of these dose optimization te chniques: automated exposure control; mA and/or kV adjustment per patient size (includes targeted exa ms where dose is matched to clinical indication); or iterative reconstruction.
== END ==
PROVIDERS: PCP Family Medicine; Visit Provider Family Medicine
DX: F17.210 Nicotine dependence, cigarettes, uncomplicated (principal); Z12.2 Encounter for screening for malignant neoplasm of respiratory organs
CPT/HCPCS: 71271

== ENCOUNTER 2022-08-06 13:43 | Outpatient (REF) | payer OTHER, MEDICAID, SELFPAY ==
[2022-08-06 15:11] LABS: Abs Immature Grans 0.02 10^3/uL (0.0-0.06); Absolute Basophil Count 0.19 10^3/uL (0.0-0.2); Absolute Eosinophil Count 0.34 10^3/uL (0.0-0.7); Absolute Lymphocyte Count 2.38 10^3/uL (1.2-3.4); Absolute Monocyte Count 0.57 10^3/uL (0.1-0.8); Basophils % 2.1; Eosinophils % 3.7; HCT 49.1 % (36.0-46.0); HGB 16.4 g/dL (11.2-15.7); Immature Grans % 0.2; Lymphocytes % 25.9; MCH 30.8 pg (27.0-33.0); MCHC 33.4 % (32.0-36.0); MCV 92 fL (80-95); MPV 10.8 fL (8.0-11.0); Monocytes % 6.2; Neutrophils % 61.9; Platelet Count 279 10^3/uL (130-400); RBC 5.32 10^6/uL (3.93-5.22); RDW 14.2 % (11.7-14.6); RDW-SD 47.9 fL
[2022-08-06 15:47] LABS: D-Dimer 1130 ng/mlFEU (<500)
[2022-08-06 15:48] LABS: ALT 39 U/L (14-59); AST 18 U/L (15-37); Albumin 3.8 g/dL (3.4-5.0); Alkaline Phosphatase 72 U/L (46-116); Anion Gap 7.6 mmol/L (3-11); BUN 10 mg/dL (7-18); Bilirubin, Total 0.3 mg/dL (0.2-1.0); CO2 30.4 mmol/L (21.0-32.0); CREATININE 0.9 mg/dL (0.55-1.02); Calcium 9.2 mg/dL (8.5-10.1); Chloride 104 mmol/L (98-107); Estimated GFR 70.07 (mL/min/1.73m2); Glucose 98 mg/dL (74-106); Magnesium 2.2 mg/dL (1.8-2.4); Potassium 4.3 mmol/L (3.5-5.1); Sodium 142 mmol/L (136-145); Total Protein 7.1 g/dL (6.4-8.2); Vitamin B12 315 pg/mL (193-986)
[2022-08-06 16:06] LABS: NT-proBNP 269 pg/mL (<300)
[2022-08-07 09:27] LABS: Hepatitis C Ab w Rflx HCV PCR Negative (Negative)
== END 2022-08-06 13:44 | disposition home or self-care (01) ==
LOC: NCHCN 13:43
PROVIDERS: PCP Family Medicine; Visit Provider Family Medicine
DX: R06.02 Shortness of breath (principal); E83.42 Hypomagnesemia; R53.83 Other fatigue; I10 Essential (primary) hypertension; F10.10 Alcohol abuse, uncomplicated; Z00.00 Encounter for general adult medical examination without abnormal findings; Z11.59 Encounter for screening for other viral diseases
CPT/HCPCS: 80053; 86803; 82607; 83735; 83880; 85025; 85379

== ENCOUNTER → 2022-08-20 14:08 | Outpatient (CLI) | payer OTHER, MEDICAID, SELFPAY ==
--- NOTE | 2022-08-20 16:13 | DI.CT_ITS ---
Exam(s) CT CHEST PE CTA EXAM: CT CHEST PE CTA CLINICAL HISTORY: SOB, R06.02; SMOKER; ELEVATED D-DIMER. TECHNIQUE: Imaging Protocol: Axial CT angiography was performed with multi-slice acquisition and mu lti-planar reconstructions as well as axial, coronal and sagittal MIP reconstructions. CONTRAST MATERIAL: Intravenous: Omnipaque 350 Contrast volume:100 ml COMPARISON: CR XR CHEST 2V PA LATERAL from 10/10/[address] chest PE CTA from 11/07/2018 CR XR CHEST 2V PA LATERAL from 11/07/[address] CHEST LUNG CANCER SCREEN from 03/19/2022 FINDINGS: Pulmonary Arteries: No evidence of filling defect to suggest pulmonary emboli. Pulmonary artery dila alisson at 3.3 cm. Tracheobronchial tree: Patent where visualized. Mediastinum and Diamante: No dominant adenopathy or fluid collection. Pulmonary parenchyma: Somewhat limited evaluation due to expiratory changes. No consolidation or dom inant measurable mass. Mild interstitial changes. Mild emphysematous changes. Pleura: No effusion or pneumothorax. Heart: Mild left atrial and left ventricular dilatation. Wsjo-ti-fykynymf coronary artery calcificat ions are seen. Mitral annular calcification present. Aorta: Thoracic aorta non-dilated. No aneurysm. No dissection. Calcification at arch. Upper abdomen: Status post cholecystectomy. Bones: Unremarkable for age. IMPRESSION: No evidence of pulmonary embolism or other acute abnormality.. RADIATION DOSE DELIVERED: Total DLP DATA REPOSITORY: All CT scans at this facility are submitted to the National Radiology Data Registry (NRDR) Dose Index Registry (DIR) with the [employer] (ACR). RADIATION OPTIMIZATION: All CT scans at this facility use at least one of these dose optimization te chniques: automated exposure control; mA and/or kV adjustment per patient size (includes targeted exa ms where dose is matched to clinical indication); or iterative reconstruction.
[2022-08-20] MEDS: Omnipaque 350 MG/ML 100 ML BTL IJ (16:37)
== END ==
PROVIDERS: PCP Family Medicine; Visit Provider Family Medicine
DX: R06.2 Wheezing (principal); F17.210 Nicotine dependence, cigarettes, uncomplicated; R79.1 Abnormal coagulation profile; J43.8 Other emphysema
CPT/HCPCS: 71275; J3490

== ENCOUNTER 2022-11-19 02:07 | Outpatient (CLI) | payer OTHER, MEDICAID, SELFPAY ==
--- NOTE | 2022-11-19 | DI.RAD_ITS ---
Exam(s) XR LUMBAR SPINE COMPLETE EXAM: XR LUMBAR SPINE COMPLETE CLINICAL HISTORY: LT SCIATICA, M54.32. TECHNIQUE: 2D digital imaging was performed. COMPARISON: No exams were available for comparison FINDINGS: Five views. No evidence of fracture or listhesis. No pars defects. Disc spaces exhibit normal height. There is facet arthropathy lower level, most evident in the right facet joint L5-S1. No scoliosis. No osseous lesions. SI joints appear unremarkable. Vascular calcification in the abd ominal aorta noted. IMPRESSION: Facet joint degenerative changes at L5-S1. No significant disc space narrowing. No scoliosis. No osseous lesions. DATA REPOSITORY: RADIATION DOSE DELIVERED:
== END 2022-11-19 02:27 ==
LOC: DI 02:07
PROVIDERS: PCP Family Medicine; Visit Provider Family Medicine
DX: M54.32 Sciatica, left side (principal); M47.816 Spondylosis without myelopathy or radiculopathy, lumbar region
CPT/HCPCS: 72110

== ENCOUNTER 2023-04-16 03:45 | Outpatient (CLI) | payer OTHER, MEDICAID, SELFPAY ==
[2023-04-16] MEDS: Albuterol HFA 18 GM 200 PUFF INH IH (11:13)
[2023-04-16] MEDS: Inhaler, Assist Device 1 EACH MC (11:14)
--- NOTE | 2023-04-18 07:04 | W.PFT ---
Date of service: 04/16/23 Time of Service: 10:02 Pulmonary Function Test Result Indications: COPD Interpretation Spirometry: There is mild airflow limitation. Very significant bronchodilator response (80% increase) Lung Volumes: Air trapping is present. Diffusion Capacity: Decreased diffusion Airway Pressure: Increased airways resistance Impression Mild airflow limitation with a very significant bronchodilator response (80%), increased air ways resistance with air trapping and a decreased diffusion. There is COPD with likely emphysema, however the significant bronchodilator response and increased airways resistance raises the possibility of concurrent asthma. Note: When compared to 01/02/21, Her FEV1 and FVC have significantly declined, there is now a significant bronchodilator response, there is now air trapping. Clinical Correlation therefore is recommended.
== END 2023-04-16 03:46 | disposition home or self-care (01) ==
LOC: RT 03:45
PROVIDERS: PCP Family Medicine; Visit Provider Family Medicine
DX: J44.9 Chronic obstructive pulmonary disease, unspecified (principal)
CPT/HCPCS: 94060; 94726; 94729

== ENCOUNTER 2024-10-21 01:42 | Outpatient (CLI) | payer MEDICARE, MEDICAID, SELFPAY ==
--- NOTE | 2024-10-21 | DI.CT_ITS ---
Exam(s) CT CHEST W EXAM: CT CHEST W CLINICAL HISTORY: Abnl wt loss, R63.4 TECHNIQUE: Imaging Protocol: Axial computed tomography images with coronal and sagittal reformatted images were created and reviewed. Computer aided detection (CAD) was utilized. CONTRAST MATERIAL: Intravenous: Omnipaque 350Contrast volume:99 mL. COMPARISON: CT CT CHEST PE CTA from 08/20/2022 FINDINGS: Tracheobronchial tree: Patent where visualized. No evidence of bronchiectasis. Pulmonary parenchyma: There is an area of atelectasis or scarring in the medial aspect of the right m iddle lobe. Dependent atelectatic changes are seen in the lung bases. No focal consolidating infilt rates are seen. No pulmonary nodules are present. Mild centrilobular emphysematous changes are pres ent. Mediastinum and Diamante: No dominant adenopathy or fluid collection. The esophagus is unremarkable. The re is a small hiatal hernia. Thyroid gland: Unremarkable. Pleura: No effusion or pneumothorax. Heart: Mild cardiomegaly involving the left atrium. Three vessel coronary artery calcification is se en. There is also mitral calcification present. No pericardial effusion. Aorta: Thoracic aorta non-dilated. Atherosclerotic calcification is present. There is no evidence of dissection. Pulmonary arteries: No pulmonary emboli are identified. Upper abdomen: Unremarkable. Lymph nodes: Within normal limits. Bones: Within normal limits for the patient's age. Soft tissues: Unremarkable. IMPRESSION: 1. No evidence of a thoracic mass or metastatic disease. 2. No acute pulmonary process. RADIATION DOSE DELIVERED: 140.3mGy.cm Total DLP DATA REPOSITORY: All CT scans at this facility are submitted to the National Radiology Data Registry (NRDR) Dose Index Registry (DIR) with the [employer] (ACR). RADIATION OPTIMIZATION: All CT scans at this facility use at least one of these dose optimization te chniques: automated exposure control; mA and/or kV adjustment per patient size (includes targeted exa ms where dose is matched to clinical indication); or iterative reconstruction.
[2024-10-21 12:58] LABS: Anion Gap 7.6 mmol/L (3-11); BUN 12 mg/dL (7-18); CO2 29.4 mmol/L (21.0-32.0); Calcium 9.5 mg/dL (8.5-10.1); Chloride 106 mmol/L (98-107); Estimated GFR 60.98 (mL/min/1.73m2); Glucose 98 mg/dL (74-106); Potassium 4.4 mmol/L (3.5-5.1); Sodium 143 mmol/L (136-145)
[2024-10-21] MEDS: Normal Saline - Diluent 50 ML VIAL IJ (13:31)
[2024-10-21] MEDS: Omnipaque 350 MG/ML 100 ML BTL IJ (13:31)
== END 2024-10-21 02:02 ==
LOC: DI 01:43
PROVIDERS: PCP Family Medicine; Visit Provider Student in an Organized Health Care Education/Training Program
DX: R63.4 Abnormal weight loss (principal); I10 Essential (primary) hypertension
CPT/HCPCS: 36415; 80048; 71260; J3490

== ENCOUNTER 2024-11-09 02:32 | Outpatient (CLI) | payer MEDICARE, MEDICAID, SELFPAY ==
--- NOTE | 2024-11-09 | DI.NM_ITS ---
APPROVED REPORT Exam: Pharmacologic Patient Location: Out-Patient Room/Bed: Stress Nurse: India Beavers RN Ordering Provider:JAYLIN ROUSE, Contact Number: [phone] BMI: 29.26 Baseline Rhythm: Sinus Rhythm Indications: chest pain Medical History Medical History: insomnia, HLD, GERD, HTN, depression, chronic pain, COPD Cardiac Medications: albuterol sulfate, amlodipine, aspirin, atorvastatin, buspirone, citalopram, cyc lobenzaprine, diazepam, advair, atrovent, losartan, magnesium oxide, meloxicam, omeprazole, trazodone , promethazine-codeine Allergies: gabapentin, mold Cardiac Risk Factors: family hx, HTN, COPD, HLD, smoker Previous Cardiac Procedures: none Pretest Chest Pain Characteristics: No chest pain Exercise History: Sedentary Physical Disabilities: Legs Lung Sounds: expiratory wheezes Heart Sounds: Regular Stress Test Details Test: Pharmacologic stress testing performed using 0.4 mg of regadenoson per 5 mL given IV over 10 s econds. Reason for pharmacologic stress test: physical limitation. Nuclear Acquisition: Rest Tc-99m/Stress Tc-99m 1 day Rest Isotope: Tc-99m Sestamibi. Dose: 10.0 Date: 11/09/2024 Injection Time: 0845 Stress Isotope: Tc-99m Sestamibi. Dose: 30.0 Date: 11/09/2024 Injection Time: 1030 HR Resting HR Supine: 70 bpm Max Heart Rate (APMHR): 151 bpm Target HR (85% APMHR): 128 bpm Max HR Achieved: 90 bpm % of APMHR: 60 Recovery HR: 82 bpm BP Resting BP Supine: 194/108 mmHg Max BP: 210/82 mmHg Recovery BP: 186/84 mmHg ECG Resting ECG: Sinus Rhythm, nonspecific ST-T abnormalities Stress ECG: Sinus Rhythm, nonspecific ST-T abnormalities ST Change: Nondiagnostic low heart rate Arrhythmia: None Recovery ECG: Sinus Rhythm, nonspecific ST-T abnormalities Recovery ST Change: Nondiagnostic low heart rate Recovery Arrhythmia: None Clinical Stress Symptoms: Abdominal discomfort Angina Score: None Rate Pressure Product: [id number] Stress ECG Conclusion 1. Resting electrocardiogram showed left ventricular hypertrophy with repolarization abnormalities 2. Patient underwent testing using pharmacologic stress with regadenoson 3. Peak heart rate achieved was 60% of maximal predicted heart rate for age 4. The electrocardiographic portion of the test was nondiagnostic 5. See MPI report Stress Test Summary STAGE HR BP SpO2 Symptoms NOTES Supine 70 194/108 93 1 min post Lexiscan injection 79 210/82 93 brief abdominal discomfort 3 min post Lexiscan injection 86 200/80 95 6 min post Lexiscan injection 82 186/84 91 symptoms resolved MPI Conclusion Myocardial perfusion is normal. There is no ischemia or evidence of prior infarction Ejection fraction is 64% with normal wall motion
[2024-11-09] MEDS: Regadenoson 0.4 MG/5 ML SYR IVP (10:30)
== END 2024-11-09 02:52 ==
PROVIDERS: PCP Student in an Organized Health Care Education/Training Program; Visit Provider Internal Medicine Cardiovascular Disease
DX: R07.9 Chest pain, unspecified (principal)
CPT/HCPCS: 78452; 93016; 93018; 93017; J2785

== ENCOUNTER 2025-01-27 00:28 | Outpatient (CLI) | payer MEDICARE, MEDICAID, SELFPAY ==
--- NOTE | 2025-01-27 08:30 | DI.US_ITS ---
APPROVED REPORT EXAM: Comprehensive 2D, Doppler, and color-flow Echocardiogram Patient Location: Out-Patient Superintendent Service: Lary Scott RDCS (AE) Indications: Intermittent chest pain, Left atrial enlargement on CT, Stress test with EKG changes con sistent with LVH Other Information Study Quality: Fair. Technically limited study due to body habitus. Conclusion Normal left ventricular wall thickness and chamber size. Ejection fraction is 55 to 60%. There are no segmental wall motion abnormalities Normal right ventricular size and function Mildly enlarged left atrium. Normal right atrial size Aortic valve is sclerotic and probably trileaflet without stenosis or regurgitation Mitral annular calcification, trace mitral regurgitation Estimated right ventricular systolic pressure is 34 mmHg Wall motion Left Ventricle The left ventricle is normal size. The overall left ventricular systolic function appears normal. The re is normal left ventricular wall thickness. There is normal LV segmental wall motion. There is no v entricular septal defect visualized. LVEF is 55-60%. Right Ventricle The right ventricle is normal size. The right ventricular systolic function is normal. Atria Left atrium is mildly dilated. The right atrium size is normal. The interatrial septum is intact with no evidence for an atrial septal defect. Aortic Valve The Aortic valve is sclerotic. Aortic valve is probably trileaflet. There is no aortic valvular steno sis. No aortic regurgitation is present. Mitral Valve Moderate mitral annular calcification. No evidence of mitral valve stenosis. Trace mitral regurgitat ion. Tricuspid Valve The tricuspid valve is normal in structure. There is no tricuspid valve stenosis. Trace tricuspid reg urgitation. The RVSP is 34.0 mmHg. Pulmonic Valve The pulmonary valve is normal in structure. There is no pulmonic valvular stenosis. There is no pulmo shimon valvular regurgitation. Great Vessels The aortic root is normal in size. The ascending aorta is normal in size. Aortic arch is not well vis ualized. IVC is normal in size and collapses >50% with inspiration. Pericardium There is no pericardial effusion. 2D Dimensions IVSD d PLAX 0.92 cm F: 0.6-1.0 Ao Root d 2.60 cm F: 2.7 - 3.3 LVPW d PLAX 0.93 cm F: 0.6 - 1.0 Ao Asc Diam d 2.76 cm F: 2.3 - 3.1 LVID d PLAX 4.00 cm F: 3.8 - 5.2 LVDs 2.97 cm F: 2.2 - 3.5 LV EF Teichholz 50.2 % FS 25.12 % LV EDV (Teich) 68.6 mL LV ESV (Teich) 34.2 mL M-Mode TAPSE 1.77 cm (M/F) >1.7 Auto EF LV EDV A4C 76.6 mL LV EDV A2C 85.1 mL LV EDV BP 80.6 mL LV ESV A4C 38.0 mL LV ESV A2C 42.9 mL LV ESV BP 40.9 mL LVEF(%) A4C 50.4 % LVEF(%) A2C 49.6 % LVEF(%) BP 49.3 % LV SV A4C 38.6 ml LV SV A2C 42.2 ml LV SV BP 39.7 ml LV CO A4C 2.7 L/min LV CO A2C 3.0 L/min LV CO BP 2.9 L/min HR A4C 71.15 BPM HR A2C 71.43 BPM LV EDV Index (BP) LA Volume LA Length A4C 6.0 cm LA Length A2C 5.5 cm LA Area A4C s 22.64 cm2 LA Area A2C s 21.15 cm2 LA Vol A4C A-L 72.62 mL LA Vol A2C A-L 69.16 mL LA Vol Biplane A-L 74.0 mL LA Vol/BSA A4C A-L LA Vol/BSA A2C A-L LA Vol/BSA BP A-L 41.1 mL/m2 LA Vol A4C MOD 68.2 mL LA Vol A2C MOD 65.1 mL LA Vol BP MOD 69.4 mL RA Volume RA Area A4C 11.2 cm2 RA ESV A4C (A-L) 23.3mL RA Vol/BSA A4C A-L RA Length A4C 4.6 cm RA ESV A4C (MOD) 22.0mL LV Diastology MV E' medial 0.066 (>0.07 m/s) MV E Vmax 1.30 (0.4-1.3 m/s) MV E/E' MED 19.54 (<14) MV A Vmax 1.25 (0.4-1.3 m/s) E/A Ratio 1.0 Aortic Valve AoV Vmax 1.87 m/s LVOT Vmax 1.13 m/s AoV Peak Grad 14.0 mmHg LVOT Peak Grad 5.1 mmHg AoV Area (Vmax) 1.83 cm2 LVOT VTI 0.262 m AoV VTI 0.454 m LVOT Mean Grad 3.2 mmHg AoV Mean Kristofer. 1.39 m/s LVOT SV 79.64 mL AoV Mean Grad 8.5 mmHg LVOT Diam s 1.95 cm AoV Area (VTI) 1.75 cm2 AV Regurg Peak Gr. 13.99 mmHg Velocity Ratio 0.60 Mitral Valve MV DT 346 (160-240 msec) MV Vmax TIPS 1.33 m/s MV Mean Grad 3.9 (<2mmHg) MV PHT 116 msec MV Area PHT 1.90 cm2 MV VTI 0.442 m Pulmonary Valve PV Vmax 1.01 (0.5-1.5 m/s) RVOT Vmax 0.95 m/s PV Peak Grad 4.1 mmHg RVOT Peak Gr. 3.6 mmHg PV Mean Kristofer 0.67 m/s RVOT VTI 0.163 m PV Mean Grad 2.1 mmHg RVOT Mean Gr. 1.7 mmHg Tricuspid Valve RA Pressure 3.00 mmHg TR Vmax 2.78 m/s TV S' 0.15 m/s TR Peak Grad 30.9 mmHg RVSP (TR) 34.0 mmHg
== END 2025-01-27 00:48 ==
LOC: DI 00:28
PROVIDERS: PCP Student in an Organized Health Care Education/Training Program; Visit Provider Internal Medicine Cardiovascular Disease
DX: R07.9 Chest pain, unspecified (principal); I08.0 Rheumatic disorders of both mitral and aortic valves
CPT/HCPCS: 93306

== ENCOUNTER 2025-02-01 08:17 | Outpatient (CLI) | payer MEDICARE, MEDICAID, SELFPAY ==
--- NOTE | 2025-02-01 08:15 | RT.EKG_ITS ---
APPROVED REPORT Exam: Resting ECG Reason for Exam: chest pain Patient Location: O HR:81 bpm ECG Measurements Heart Rate 81 AXIS PA 149 P 55 QRSd 72 QRS 33 QT 405 T 67 QTc 470 Conclusion Sinus rhythm...normal P axis, V-rate 50- 99 Probable left atrial enlargement...P >50mS, <-0.10mV V1 Anteroseptal infarct, old...Q >40mS, V1-V2
== END 2025-02-01 08:18 | disposition home or self-care (01) ==
LOC: DI.CARD 08:18
PROVIDERS: PCP Student in an Organized Health Care Education/Training Program; Visit Provider Registered Nurse
DX: R07.9 Chest pain, unspecified (principal); I51.7 Cardiomegaly; I10 Essential (primary) hypertension
CPT/HCPCS: 93010

== ENCOUNTER → 2025-02-01 09:35 | Outpatient (BNVA) | payer MEDICARE, MEDICAID, SELFPAY | PROVIDERS: PCP Student in an Organized Health Care Education/Training Program; Referring Provider Student in an Organized Health Care Education/Training Program; Visit Provider Registered Nurse | DX: R07.9 Chest pain, unspecified (principal); J44.9 Chronic obstructive pulmonary disease, unspecified; I10 Essential (primary) hypertension | CPT/HCPCS: 99214; 93005 ==

== ENCOUNTER → 2025-02-23 10:12 | Outpatient (BNVA) | payer MEDICARE, MEDICAID, SELFPAY | PROVIDERS: PCP Student in an Organized Health Care Education/Training Program; Referring Provider Student in an Organized Health Care Education/Training Program; Visit Provider Physician Assistant Surgical | DX: J44.9 Chronic obstructive pulmonary disease, unspecified (principal); J45.909 Unspecified asthma, uncomplicated; F17.210 Nicotine dependence, cigarettes, uncomplicated | CPT/HCPCS: 99215; 94618; G0296; 36415 ==

== ENCOUNTER 2025-02-23 14:24 | Outpatient (REF) | payer MEDICARE, MEDICAID, SELFPAY ==
[2025-02-23 13:58] LABS: Abs Immature Grans 0.02 10^3/uL (0.0-0.06); Absolute Basophil Count 0.15 10^3/uL (0.0-0.2); Absolute Eosinophil Count 0.33 10^3/uL (0.0-0.7); Absolute Lymphocyte Count 1.94 10^3/uL (1.2-3.4); Absolute Monocyte Count 0.47 10^3/uL (0.1-0.8); Absolute Neutrophil Count 5.31 10^3/uL (1.2-6.7); Basophils % 1.8 %; HCT 47.1 % (36.0-46.0); Immature Grans % 0.2 %; Lymphocytes % 23.6 %; MCH 30.3 pg (27.0-33.0); MCV 89 fL (80-95); MPV 10.5 fL (8.0-11.0); Monocytes % 5.7 %; Neutrophils % 64.7 %; Platelet Count 283 10^3/uL (130-400); RBC 5.28 10^6/uL (3.93-5.22); RDW 14.2 % (11.7-14.6); RDW-SD 46.1 fL; WBC 8.22 10^3/uL (4.4-10.8)
[2025-02-24 09:13] LABS: IgE 816 IU/mL (<158)
== END 2025-02-23 14:25 | disposition home or self-care (01) ==
LOC: LBN 14:24
PROVIDERS: PCP Student in an Organized Health Care Education/Training Program; Visit Provider Physician Assistant Surgical
DX: J45.909 Unspecified asthma, uncomplicated (principal); F17.200 Nicotine dependence, unspecified, uncomplicated
CPT/HCPCS: 82785; 85025

== ENCOUNTER → 2025-03-25 10:30 | Outpatient (BNVA) | payer MEDICARE, MEDICAID, SELFPAY | PROVIDERS: PCP Student in an Organized Health Care Education/Training Program; Referring Provider Student in an Organized Health Care Education/Training Program; Visit Provider Physician Assistant Surgical | DX: J44.9 Chronic obstructive pulmonary disease, unspecified (principal); J45.909 Unspecified asthma, uncomplicated; F17.200 Nicotine dependence, unspecified, uncomplicated | CPT/HCPCS: 99214 ==

== ENCOUNTER 2025-03-26 00:07 | Outpatient (CLI) | payer MEDICARE, MEDICAID, SELFPAY ==
--- NOTE | 2025-03-26 07:00 | DI.CTLCSR_ITS ---
Exam(s) CT CHEST LUNG CANCER SCREEN EXAM: CT CHEST LUNG CANCER SCREEN CLINICAL HISTORY: Screening for lung cancer,cigarette smoker, f17.210 TECHNIQUE: Imaging Protocol: Axial computed tomography images with coronal and sagittal reformatted images were created and reviewed. Low dose screening protocol. COMPARISON: CT CT CHEST W from 10/21/2024 FINDINGS: Tracheobronchial tree: No bronchiectasis or mucus plugging. Mediastinum and Diamante: No dominant adenopathy or fluid collection. Pulmonary parenchyma: No consolidation or dominant measurable mass. Mild emphysematous changes. No significant interstitial changes. Lung Nodules: None. Pleura: No effusion. No pneumothorax. Heart: The heart is mildly dilated. Mild coronary artery calcifications are seen. No pericardial effusion. Mitral annular calcifications. Aorta: Thoracic aorta non-dilated. Severe calcifications at arch. Upper abdomen: Unremarkable. Bones: Unremarkable for age. Soft Tissues: Unremarkable. IMPRESSION: No suspicious pulmonary nodules. Lung RADS Cat 1 - Negative: No nodules and definitely benign nodules Lung-RADS 1.0 CATEGORIES: Category 0 - Prior chest CT exam(s) being located for comparison. Category 1 - Annual screening in 12 months. No nodules or definitely benign nodules. Category 2 - Annual screening in 12 months. Benign appearance. Nodules with low likelihood of becoming active cancer. Category 3 - 6-month follow-up. Probably benign. Short-term follow-up suggested. Nodules with low likelihood of becoming active cancer. Category 4A - 3-month follow-up and CT/PET if >8 mm in size. Suspicious finding. Findings which require additional testing. Category 4B - Findings which require additional testing and tissue sampling. Category 4X - Category 3 or 4 nodules with additional features or imaging findings that increases the suspicion of malignancy. Modifier S- Potentially clinically significant findings (non lung cancer) RADIATION DOSE DELIVERED: 34.79mGy.cm Total DLP DATA REPOSITORY: All CT scans at this facility are submitted to the National Radiology Data Registry (NRDR) Dose Index Registry (DIR) with the [employer] (ACR). RADIATION OPTIMIZATION: All CT scans at this facility use at least one of these dose optimization techniques: automated exposure control; mA and/or kV adjustment per patient size (includes targeted exams where dose is matched to clinical indication); or iterative reconstruction.
== END 2025-03-26 00:27 ==
LOC: DI 00:07
PROVIDERS: PCP Student in an Organized Health Care Education/Training Program; Visit Provider Physician Assistant Surgical
DX: Z12.2 Encounter for screening for malignant neoplasm of respiratory organs (principal); F17.210 Nicotine dependence, cigarettes, uncomplicated
CPT/HCPCS: 71271

== ENCOUNTER → 2025-06-24 09:03 | Outpatient (BNVA) | payer MEDICARE, MEDICAID, SELFPAY | PROVIDERS: PCP Student in an Organized Health Care Education/Training Program; Referring Provider Student in an Organized Health Care Education/Training Program; Visit Provider Physician Assistant Surgical | DX: J44.9 Chronic obstructive pulmonary disease, unspecified (principal); J45.909 Unspecified asthma, uncomplicated; F17.210 Nicotine dependence, cigarettes, uncomplicated; U07.1 COVID-19 | CPT/HCPCS: 36415; 99214 ==

== ENCOUNTER 2025-06-24 10:30 | Outpatient (REF) | payer MEDICARE, MEDICAID, SELFPAY ==
[2025-06-29 12:34] LABS: Aspergillus Niger, IgE <0.10 kU/L (<0.70); Candida Albicans (Monilia),IgE <0.10 kU/L (<0.70)
[2025-06-29 12:52] LABS: Mouse Serum Protein IgE <0.10 kU/L (<0.70)
== END 2025-06-24 10:31 | disposition home or self-care (01) ==
LOC: LBN 10:30
PROVIDERS: PCP Student in an Organized Health Care Education/Training Program; Visit Provider Physician Assistant Surgical
DX: T78.40XA Allergy, unspecified, initial encounter (principal); F17.200 Nicotine dependence, unspecified, uncomplicated; J44.9 Chronic obstructive pulmonary disease, unspecified; J45.909 Unspecified asthma, uncomplicated
CPT/HCPCS: 86003

== ENCOUNTER → 2025-08-16 09:23 | Outpatient (BNVA) | payer MEDICARE, MEDICAID, SELFPAY | PROVIDERS: PCP Student in an Organized Health Care Education/Training Program; Referring Provider Student in an Organized Health Care Education/Training Program; Visit Provider Registered Nurse | DX: E78.5 Hyperlipidemia, unspecified (principal); I10 Essential (primary) hypertension; R07.9 Chest pain, unspecified; J44.9 Chronic obstructive pulmonary disease, unspecified; F17.210 Nicotine dependence, cigarettes, uncomplicated | CPT/HCPCS: 99214 ==